=== PATIENT | male | born 2000 | race Two or more races ===

== ENCOUNTER 2024-04-02 23:21 | Emergency (ER) | payer BC, OTHER ==
[~2024-04-02] VITALS: Ht 180.3 cm; Wt 72.8 kg
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
[2024-04-03] MEDS: KETOROLAC TROMETH 30 MG/ML 1ML VIAL IM ONE (01:15)
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
--- NOTE | 2024-04-03 01:35 | DVH ---
EXAM: CT MAXILLOFACIAL WITHOUT CLINICAL HISTORY: R/o facial fractures trauma TECHNIQUE: Multiple contiguous axial images were obtained of the facial bones without intravenous con trast. Sagittal and coronal reformations were obtained. This exam was performed according to our depa rtmental dose optimization program. Up-to-date CT equipment and radiation dose reduction techniques a re utilized as appropriate. Comparison: None FINDINGS: There is a small left frontal scalp / forehead contusion. The mastoid air cells and visualized parana adilene sinuses are well-aerated aside from trace mucosal thickening of the left maxillary sinus. The aysha bes and orbits are normal in appearance without CT evidence of orbital hemorrhage. The extraocular mu scles are intact. No facial, mandibular, or orbital wall fracture is identified. The temporomandibula r joints are maintained. IMPRESSION: 1. No evidence of acute facial fracture or orbital hemorrhage. 2. Small left frontal scalp / forehead contusion.
[2024-04-03] MEDS ORDERED: IBUP-1454 PO (01:46)
[2024-04-03] MEDS ORDERED: CYCL-837 PO (01:46)
[2024-04-03 01:48] VITALS: BP 120/77; PULSE 97; RESP 20; TEMP 98.9; O2SAT 96
[2024-04-03 01:56] LABS: Urine Bacteria None Seen /hpf (None Seen)
[2024-04-03 02:32] LABS: Urine Amorphous Crystal FEW /hpf (None Seen); Urine Blood 1+ /uL (Negative); Urine Clarity Clear (Clear); Urine Color Light-Yellow (Yellow); Urine Protein, UAD TRACE (Negative); Urine Specific Gravity 1.023 (1.001-1.035); Urine Urobilinogen Normal (Negative); Urine WBC 2 /hpf (0 - 3)
== END 2024-04-03 02:09 | disposition home or self-care (01) ==
LOC: ER 23:21
DX: S00.03XA Contusion of scalp, initial encounter (principal); R04.0 Epistaxis; V89.2XXA Person injured in unspecified motor-vehicle accident, traffic, initial encounter; Y93.I9 Activity, other involving external motion; Y92.488 Other paved roadways as the place of occurrence of the external cause; Y99.8 Other external cause status
CPT/HCPCS: 70450; 70486; 81001; 96372; 99285; J1885